=== PATIENT | female | born 1945 | race Caucasian/White ===

== ENCOUNTER 2016-09-14 11:10 | Emergency (ER) | payer MEDICARE, OTHER ==
[~2016-09-14] VITALS: Ht 167.6 cm; Wt 60.0 kg
[2016-09-14] MEDS ORDERED: SODIUM CHLORIDE 0.9% 1,000 ML IV ONE (11:27)
[2016-09-14] MEDS ORDERED: KETOROLAC 30 MG/1 ML IV ONE (11:30)
[2016-09-14] MEDS ORDERED: ONDANSETRON 2MG/ML, 2ML IVPush ONE (11:30)
[2016-09-14] MEDS ORDERED: KETOROLAC 30 MG/1 ML ONE (11:43)
[2016-09-14] MEDS ORDERED: ONDANSETRON 2MG/ML, 2ML ONE (11:43)
[2016-09-14] MEDS ORDERED: PLEASE ENTER ALLERGIES MC SCH ×2 (12:00)
[2016-09-14 12:03] LABS: ASPARTATE AMINO TRANSFERASE 11 U/L (15-37); BLOOD UREA NITROGEN 11 mg/dL (7-18)
[2016-09-14] MEDS ORDERED: MORPHINE SULFATE 4 MG/ML, 1ML ONE (12:25)
[2016-09-14] MEDS ORDERED: LORazepam 2 MG/ML, 1ML ONE (12:25)
[2016-09-14 12:30] LABS: HYPOCHROMIA 1+; POLYCHROMASIA 1+
[2016-09-14 12:31] LABS: ANISOCYTOSIS 2+; MICROCYTOSIS 1+
[2016-09-14] MEDS ORDERED: LORazepam 2 MG/ML, 1ML IVPush ONE (15:30)
[2016-09-14] MEDS ORDERED: MORPHINE SULFATE 4 MG/ML, 1ML IVPush PRN (15:30)
[2016-09-14 17:34] VITALS: BP 133/77
== END 2016-09-14 17:37 | disposition home or self-care (01) ==
LOC: ED 17:15
DX: S70.01XA Contusion of right hip, initial encounter (principal); S80.01XA Contusion of right knee, initial encounter; F10.120 Alcohol abuse with intoxication, uncomplicated; D53.9 Nutritional anemia, unspecified; W19.XXXA Unspecified fall, initial encounter; Y93.89 Activity, other specified; Y92.89 Other specified places as the place of occurrence of the external cause; Y99.8 Other external cause status
CPT/HCPCS: 36415; 73502; 73552; 73564; 80053; 80307; 85025; 85610; 96361; 96374; 96375; 99285; J1885; J2060; J2405; J7030